=== PATIENT | male | born 1985 | race Caucasian/White ===

== ENCOUNTER 2018-02-26 08:13 | Emergency (ER) | payer BC ==
[2018-02-26 08:26] VITALS: BP 141/98
[2018-02-26] MEDS ORDERED: Ondansetron ODT TAB* 4 MG PO ONE (08:52)
--- NOTE | 2018-02-26 09:05 | UC ---
Abdominal Pain Male HPI - HPI Summary HPI Summary: Onset of right upper quadrant abdominal pain yesterday. Patient has associated nausea and feels bloated. Appetite is decreased. Denies fever. No urinary symptoms or penile discharge. Patient is not concerned at all about STDs. Appendix out earlier this year and patient states pain feels similar. - History of Current Complaint Chief Complaint: UCAbdominalPain Stated Complaint: ABD PAIN NAUSEA Time Seen by Provider: 02/26/18 08:38 Hx Obtained From: Patient Onset/Duration: Sudden Onset, Lasting Days - 1 DAY, Still Present Timing: Constant Severity Initially: Moderate Severity Currently: Moderate Pain Intensity: 2 Pain Scale Used: 0-10 Numeric Location: Discrete At: RUQ Radiates: No Character: Colicy, Sharp Aggravating Factor(s): Nothing Alleviating Factor(s): Nothing Associated Signs And Symptoms: Positive: Decreased Appetite, Nausea. Negative: Fever, Back Pain, Constipation, Blood in Stool, Urinary Symptoms, Vomiting, Diarrhea, Penile Discharge - Allergies/Home Medications Allergies/Adverse Reactions: Allergies Allergy/AdvReac Type Severity Reaction Status Date / Time No Known Allergies Allergy Verified 02/26/18 08:26 Home Medications: Home Medications Ibuprofen TAB* [Advil TAB*] 800 mg PO Q6H PRN 02/26/18 [History Confirmed ] Omeprazole CAP* [Prilosec CAP* 20 MG] 40 mg PO DAILY 02/26/18 [History Confirmed 02/26/18] PMH/Surg Hx/FS Hx/Imm Hx Other GI/ History: SMALL HIATAL HERNIA - Surgical History Surgical History: Yes Surgery Procedure, Year, and Place: appendectomy 2018 - Family History Known Family History: Negative: Hypertension - Social History Alcohol Use: Rare Substance Use Type: Marijuana Substance Use Comment - Amount & Last Used: daily Smoking Status (MU): Never Smoked Tobacco Review of Systems Constitutional: Negative Respiratory: Negative Cardiovascular: Negative Gastrointestinal: Abdominal Pain, Nausea Genitourinary: Negative All Other Systems Reviewed And Are Negative: Yes Physical Exam Triage Information Reviewed: Yes Appearance: Well-Appearing, No Pain Distress, Well-Nourished Vital Signs: Initial Vital Signs Temp 97.3 F 02/26/18 08:22 Pulse 87 02/26/18 08:22 Resp 16 02/26/18 08:22 BP 141/98 10/31/18 08:22 Pulse Ox 97 02/26/18 08:22 Vital Signs Reviewed: Yes Eyes: Positive: Conjunctiva Clear ENT: Positive: Hearing grossly normal Neck: Positive: Supple Respiratory Exam: Normal Cardiovascular Exam: Normal Abdomen Description: Positive: Soft, Distended, Other: - RUQ TENDERNESS. NEG TANG'S. Negative: CVA Tenderness (R), CVA Tenderness (L), Guarding Bowel Sounds: Positive: Present Musculoskeletal: Positive: No Edema Neurological: Positive: Alert Psychological: Positive: Age Appropriate Behavior Skin: Negative: rashes Diagnostics - Radiology RUQ US Radiology Interpretation Completed By: Radiologist Summary of Radiographic Findings: 1. CHOLELITHIASIS, INCLUDING A STONE WITHIN THE NECK OF THE GALLBLADDER WITHOUTSONOGRAPHIC FEATURES OF ACUTE CHOLECYSTITIS. 2. FATTY INFILTRATION OF THE LIVER. Abd Pain Male Course/Dx - Differential Dx/Clinical Impression Provider Diagnoses: BILIARY COLIC/CHOLELITHIASIS Discharge - Sign-Out/Discharge Documenting (check all that apply): Patient Departure All imaging exams completed and their final reports reviewed: Yes - Discharge Plan Condition: Stable Disposition: HOME Prescriptions: Ondansetron ODT TAB* [Zofran Odt TAB*] 4 mg PO Q6H PRN #20 tab.odt PRN Reason: Nausea/Vomiting Patient Education Materials: Biliary Colic (ED), Gallstones (ED), Low Fat Diet (ED) Referrals: Juan Light MD [Medical Doctor] - 1 Week Additional Instructions: RIGHT UPPER QUADRANT ULTRASOUND TODAY SHOWS: 1. CHOLELITHIASIS, INCLUDING A STONE WITHIN THE NECK OF THE GALLBLADDER WITHOUT SONOGRAPHIC FEATURES OF ACUTE CHOLECYSTITIS. 2. FATTY INFILTRATION OF THE LIVER. FOLLOW A LOW FAT DIET TO HELP MITIGATE YOUR SYMPTOMS. FOLLOW-UP WITH YOUR SURGEON IF YOU ARE INTERESTED IN ELECTIVE CHOLECYSTECTOMY. GO TO THE ED WITHOUT FAIL IF YOU DEVELOP WORSENING PAIN, FEVER, INTRACTABLE NAUSEA OR ANY OTHER CONCERNING SYMPTOMS. - Billing Disposition and Condition Condition: STABLE Disposition: Home
--- NOTE | 2018-02-26 09:40 | RAD ---
HISTORY: RUQ PAIN, NAUSEA COMPARISONS: None TECHNIQUE: Multiple transverse and longitudinal ultrasound images were obtained of the right upper quadrant of the abdomen using grayscale, color Doppler, and spectral Doppler imaging. FINDINGS: LIVER: The liver is diffusely echogenic and coarse in echotexture, with decreased acoustic transmission. The liver measures 17.9 cm in long axis. There is normal hepatopedal flow of the portal vein on Doppler imaging. BILIARY TREE: There is no intrahepatic or extrahepatic biliary dilatation. The common duct measures 0.5 cm. GALLBLADDER: A gallstone is noted within the neck of the gallbladder. This is immobile. There is no gallbladder wall thickening, pericholecystic fluid, or sonographic Cueva sign. PANCREAS: The head of the pancreas is unremarkable. The tail of the pancreas is not well visualized secondary to overlying bowel gas. RIGHT KIDNEY: The right kidney is normal in shape, size, contour, and echogenicity. There is no hydronephrosis or nephrolithiasis. The right kidney measures 10.9 x 4.3 x 5.6 cm. AORTA AND IVC: The aorta and IVC are unremarkable. Normal arterial and venous waveforms are identifiable on spectral Doppler imaging. FLUID: There are no pleural effusions. There is no free fluid within the hepatorenal recess. OTHER FINDINGS: None. IMPRESSION: 1. CHOLELITHIASIS, INCLUDING A STONE WITHIN THE NECK OF THE GALLBLADDER WITHOUT SONOGRAPHIC FEATURES OF ACUTE CHOLECYSTITIS. 2. FATTY INFILTRATION OF THE LIVER.
== END 2018-02-26 10:18 | disposition home or self-care (01) ==
LOC: UCEAST 08:13
DX: K80.70 Calculus of gallbladder and bile duct without cholecystitis without obstruction (principal); K76.0 Fatty (change of) liver, not elsewhere classified; R11.0 Nausea; Z90.89 Acquired absence of other organs
CPT/HCPCS: 76705; 99202; A9270-GY; G0463